=== PATIENT | female | born 1985 | race Caucasian/White ===

== ENCOUNTER 2018-10-16 22:30 | Emergency (ER) | payer OTHER ==
--- NOTE | 2018-10-17 00:48 | OBHP ---
Datetime: 10/17/2018 00:34 IP Adm Impression: Term, intrauterine ; No Active Labor; Intact Membranes IP Admit Plan: Discharge home Admit Comment, IP Provider: 32 yo female with an IUP at 38.1 weeks and presents with c/o of Leaking fluid since earlier tonite without any onset ot contractions or any cramping, Admits to adeq uate FM and no gush of fluid. States that there has been no problems with this . Denied any urinary or bowel c/o's. PMHx Negative PSHx: C/S x 1 Meds PNV NKDA Social Hx Negative x 3 PE: as noted above A/P IUP at 38.1 weeks No fluid in vaginal per SSE exam. Nitrazine negative but pt was clearly peeing in front of my eyes and across the bed. NST Reactive. No contractions recorded or palpated Pt reassured and discharged home with labor precautions and verbalized understanding Dr. Wilson notified and agreed with POC. Pelvic Type - PN: Adequate Extremities - PN: Normal Abdomen - PN: Normal Back - PN: Normal Breast - PN: Not Done Lungs - PN: Normal Heart - PN: Normal Thyroid - PN: Normal Neurologic - PN: Normal HEENT - PN: Normal General - PN: Normal Presentation-Admit: Vertex FHR - Baseline A Provider: 130 Membranes, Provider: Intact Contraction Comments Provider: None Gestation - Est Wks by US: 38.1 Pool Provider: Negative Nitrazine Provider: Negative EGA AdmitDate IP: 38.1 Vital Signs Provider: Reviewed IP Chief Complaint: Suspected ruptured membranes NICHD Variability Prov Fetus A: Moderate 6-25bpm NICHD Accel Fetus A IP Provider: [id number] FHR Category Provider Fetus A: Category I NICHD Decel Fetus A IP Provider: None Dilatation, Provider: 0 Effacement, Provider: 0 Station, Provider: -3 Genitourinary Exam: Normal DTRs - PN: Normal
[2018-10-17 05:06] VITALS: BP 116/83; PULSE 91; RESP 20; TEMP 99; O2SAT 99
== END 2018-10-17 00:50 | disposition home or self-care (01) ==
LOC: C.EROB 22:30
DX: O26.893 Other specified pregnancy related conditions, third trimester (principal); Z3A.38 38 weeks gestation of pregnancy

== ENCOUNTER 2018-10-22 05:38 | Inpatient (IN) | payer OTHER ==
[2018-10-22 06:15] VITALS: BMI 32.5
[2018-10-22] MEDS ORDERED: Lactated Ringer's 1,000 ML IV ONE ×2 (06:26→10:00)
[2018-10-22 06:40] LABS: BASO # 0.1 K/uL (0.0-0.2); BASO % 0.7 % (0.0-2.0); EOS # 0.1 K/uL (0.0-0.7); EOS % 1.2 % (0.0-4.0); HEMOGLOBIN 11.7 g/dL (11.0-16.0); LYMPH # 2.5 K/uL (1.0-4.3); LYMPH % 24.4 % (20.0-40.0); MEAN CELL VOLUME 83.7 fL (81.0-99.0); MEAN CORPUSCULAR HEMOGLOBIN 27.4 pg (27.0-31.0); MEAN CORPUSCULAR HGB CONC 32.8 g/dL (33.0-37.0); MONO # 0.6 K/uL (0.0-0.8); MONO % 6.1 % (0.0-10.0); NEUT # 6.9 K/uL (1.8-7.0); NEUT % 67.6 % (50.0-75.0); NRBC % 0.1 % (0.0-2.0); RBC 4.25 Mil/uL (3.80-5.20); RED CELL DISTRIBUTION WIDTH 16.5 % (11.5-14.5); WHITE BLOOD COUNT 10.1 K/uL (4.8-10.8)
[2018-10-22 06:51] LABS: SQUAMOUS EPITHIAL 7 /hpf (0-5); URINE BACTERIA OCC (<OCC)
[2018-10-22 06:55] LABS: URINE BILIRUBIN NEGATIVE (NEGATIVE); URINE CLARITY Clear (Clear); URINE COLOR YELLOW (YELLOW); URINE GLUCOSE (UA) NEGATIVE (Normal)
[2018-10-22 06:56] LABS: PH,URINE 5.5 (5.0-8.0); URINE BLOOD NEGATIVE (NEGATIVE); URINE LEUKOCYTE ESTERASE NEGATIVE Leu/uL (Negative); URINE PROTEIN NEGATIVE (NEGATIVE); URINE UROBILINOGEN 0.2 mg/dL (0.2-1.0)
[2018-10-22 07:00] LABS: ALB/GLOB RATIO 1.1 (1.0-2.1); ALBUMIN 3.6 g/dL (3.5-5.0); ALT/SGPT 15 U/L (9-52); AST/SGOT 17 U/L (14-36); BLOOD UREA NITROGEN 10 mg/dL (7-17); GFR NON-AFRICAN AMERICAN > 60
[2018-10-22] MEDS ORDERED: Oxytocin 10 Units/ml Inj ONE (07:29)
[2018-10-22] MEDS ORDERED: Morphine 1 mg/ml preservative-free Inj(Duramorph) ONE (07:32)
[2018-10-22] MEDS ORDERED: Sodium Citrate/Citric Acid 15 ml Sol PO ONE (08:00)
[2018-10-22] MEDS ORDERED: cefOXitin IV 2 gm in Dextrose 2 GM/50 ML BAG IVPB ONE (08:00)
--- NOTE | 2018-10-22 09:33 | OBADHP ---
Datetime: 10/22/2018 06:31 IP Adm Impression Other: abdominal pain Admit Comment, IP Provider: Patient is a 32 year old at 38w6d with DENNY of 10/30/2018 by LMP wh o presents with abdominal pain. States that the pain started last night and occurs every 10 minutes. She endorses +FM, denies LOF and VB. Issues: Denies OB Hx: 1. IAB 2. 2011 PLTCD 2/2 NRFHT Female , no complications 3. Current [employer] Hx: LMP 01/23/18 [facility] 14 x regular x 3 days Denies history of fibroids, ovarian cysts Allergies: NKDA Medications: PNV, Iron Medical History: Denies Surgical History: C/S x 1 Social History: Denies alcohol, tobacco, drug use Family History: Denies PE: See above A/P: Patient is a 32 year old at 38w6d, previous C/S in early labor -Admit to unit -Diet: NPO -CEFM and TOCO -Admission labs: CBC, CMP, UA, TS -Cefoxitin, Pepcid, Bictra preoperatively -Anesthesia notified -Plan discussed with Dr Katie Davies DO PGY-2 FHR - Baseline A Provider: 135 Contraction Comments Provider: irregular Comments, ACOG Physical Exam: VSS Gen: AAOx3 Abd: Soft, gravid Ext: No clubbing, cyanosis, edema SVE: /-2 IP Hx Assessment: The History has been Reviewed and is Current Vital Signs Provider: Reviewed; Within Normal Limits IP Chief Complaint: Uterine contractions NICHD Variability Prov Fetus A: Moderate 6-25bpm FHR Category Provider Fetus A: Category I NICHD Decel Fetus A IP Provider: None Dilatation, Provider: 2 Effacement, Provider: 70 Station, Provider: -2 EGA AdmitDate IP: 38.6 IP Adm Impression: Term, intrauterine IP Admit Plan: Admit to unit Datetime: 10/17/2018 00:34 Pelvic Type - PN: Adequate Extremities - PN: Normal Abdomen - PN: Normal Back - PN: Normal Breast - PN: Not Done Lungs - PN: Normal Heart - PN: Normal Thyroid - PN: Normal Neurologic - PN: Normal HEENT - PN: Normal General - PN: Normal Presentation-Admit: Vertex Membranes, Provider: Intact Gestation - Est Wks by US: 38.1 Pool Provider: Negative Nitrazine Provider: Negative NICHD Accel Fetus A IP Provider: 15X15 Genitourinary Exam: Normal DTRs - PN: Normal
--- NOTE | 2018-10-22 10:41 | PCM.SURG1 ---
Surgeon's Initial Post Op Note - Surgeon's Notes Surgeon: dr iqbal Die Cast Technician: dr olivarez Type of Anesthesia: Spinal Anesthesia Administered By: dr valdivia Pre-Operative Diagnosis: 32c yr at 38+we with pain/previous c/s Operative Findings: see the op Post-Operative Diagnosis: repeat c/s Operation Performed: repeat sectioion Specimen/Specimens Removed: placente. cord blood Estimated Blood Loss: EBL {In ML}: 700 Blood Products Given: N/A Drains Used: No Drains Post-Op Condition: Good Date of Surgery/Procedure: 10/22/18 Time of Surgery/Procedure: 10:00
[2018-10-22] MEDS ORDERED: Oxycodone/Acetaminophen 5/325 mg Tab PO PRN (14:52)
[2018-10-22] MEDS: Simethicone 80 mg Chewtab PO SCH ×2 (17:05→22:14)
[2018-10-22] MEDS ORDERED: Tdap Vaccine 0.5 ml Vial (10-64 yrs) IM ONE (17:38)
[2018-10-23] MEDS: Oxycodone/Acetaminophen 5/325 mg Tab PO PRN ×2 (00:32→19:37)
--- NOTE | 2018-10-23 02:57 | OP ---
PROCEDURE DATE: 10/22/2018 PREOPERATIVE DIAGNOSES: A 32-year-old 2, para 1, has previous section, abdominal pain. POSTOPERATIVE DIAGNOSES: A 32-year-old 2, para 1, has previous section, abdominal pain. SURGEON: Tai Wilson MD PRINT INSPECTOR SURGEON: Mani Jolley MD, who was present throughout the surgery. ANESTHESIA: Spinal. ANESTHESIOLOGIST: Dr. Morejon. PROCEDURE PERFORMED: Repeat section. COMPLICATION: None. ESTIMATED BLOOD LOSS: 700 mL. DESCRIPTION OF PROCEDURE: After informed consent was obtained, the patient was brought to the operating room and placed supine on the table, where spinal anesthesia was given. Once the anesthesia was given, the patient was prepped and draped in normal sterile fashion. At the site of the previous skin incision, an incision was made with a knife, the subcutaneous cut with a Bovie, and the fascia was excised on both sides using curved Alejandro scissors. The fascia was from the site of the umbilicus and then at the site of the rectus muscle. Rectus muscle was , the peritoneum was lifted up with two Allis scissors and it was cut with Metzenbaum scissors. Bladder blade was placed. Bladder flap was created. Lower uterine segment incision was made with a knife. It was extended on both sides using Bovie and curved Alejandro scissors. Baby was delivered in ELANA position. Cord was clamped and cut. Baby was handed to the awaiting cartography technician. After that, cord gas was taken. Placenta was taken and sent to Pathology. The uterus was exteriorized and cleared of all clots and debris. Uterine incision was closed using #1 Vicryl in running interlocking fashion. Second layer was closed with the same stitch. After that cul-de-sac was cleared of all the clots and debris. Uterus, tubes, and ovaries were normal. Then the uterus was returned back to the abdominal cavity. Gutters were cleared of clots and debris. Peritoneum was closed using 2-0 Vicryl in running interlocking fashion. Muscle was closed using 2-0 Vicryl in running interlocking fashion. The fascia was then closed using #1 Vicryl in running interlocking fashion. Skin was closed using 3-0 Monocryl on straight needle. The patient tolerated the procedure well. Lap, sponge, and instrument counts were correct x2. Tai Wilson MD
--- NOTE | 2018-10-23 06:10 | OBPPN ---
Datetime: 10/23/2018 06:06 PP Pain Prov: Within normal limits PP Nausea Prov: Denies PP Flatus Prov: No PP Abdomen/Uterus Prov: Normal PP Lochia Prov: Normal PP Extremities Prov: Normal PP C/S Incision Prov: Normal PP Comments Phys Exam Prov: incision clean and dry PP Impression Prov: Normal progression PP Plan Prov: Continue present management PP Progress Note Prov: pt was seen at bed side, pain under control,no n/v, toleralting liquid deit, egan inn, no flatus pod#1 s/p c/s cbc advance det cont poast op care cont pain managemenet encourage ambulatioj Vital Signs Provider PP: Reviewed; Within Normal Limits
[2018-10-23 08:18] LABS: HEMOGLOBIN 11.1 g/dL (11.0-16.0); MEAN CELL VOLUME 83.8 fL (81.0-99.0); MEAN CORPUSCULAR HEMOGLOBIN 27.8 pg (27.0-31.0); MEAN CORPUSCULAR HGB CONC 33.2 g/dL (33.0-37.0); MEAN PLATELET VOLUME 9.5 fL (7.2-11.7); RBC 3.98 Mil/uL (3.80-5.20); RED CELL DISTRIBUTION WIDTH 16.6 % (11.5-14.5); WHITE BLOOD COUNT 10.7 K/uL (4.8-10.8)
[2018-10-23] MEDS: Prenatal Multivit/Folic Acid/Iron Tab PO SCH (10:19)
[2018-10-23] MEDS: Simethicone 80 mg Chewtab PO SCH ×4 (10:19→21:35)
[2018-10-24] MEDS: Oxycodone/Acetaminophen 5/325 mg Tab PO PRN ×2 (02:30→20:39)
[2018-10-24 09:22] VITALS: O2SAT 98
[2018-10-24] MEDS: Simethicone 80 mg Chewtab PO SCH ×4 (09:48→22:19)
[2018-10-24] MEDS: Prenatal Multivit/Folic Acid/Iron Tab PO SCH (09:49)
--- NOTE | 2018-10-24 10:33 | OBPPN ---
Datetime: 10/24/2018 10:31 PP Pain Prov: Within normal limits PP Nausea Prov: Present PP Flatus Prov: Yes PP Abdomen/Uterus Prov: Normal PP Lochia Prov: Normal PP Extremities Prov: Normal PP C/S Incision Prov: Normal PP Impression Prov: Normal progression PP Plan Prov: Continue present management PP Progress Note Prov: pt was seen at bed side, pain under control,no n/v, tolerating deit, voiding, min lochia, flatus+ pod#2 s/p c/s cont pain marcelina cont post op care encourage ambulation Vital Signs Provider PP: Reviewed; Within Normal Limits
[2018-10-25 08:49] VITALS: PULSE 77; TEMP 98.3
[2018-10-25] MEDS: Prenatal Multivit/Folic Acid/Iron Tab PO SCH (09:10)
[2018-10-25] MEDS: Simethicone 80 mg Chewtab PO SCH (09:10)
[2018-10-25] MEDS ORDERED: Influenza Vaccine 60 mcg/0.5 mL SYR (4YR UP) IM ONE (10:17)
[2018-10-25 19:40] VITALS: BP 100/68; RESP 18
== END 2018-10-25 15:38 | disposition home or self-care (01) | DRG 788 ==
LOC: C.EROB 05:38 → C.4D 06:26 → C.4M 12:04
PROVIDERS: ADMIT Obstetrics & Gynecology; ATTEND Obstetrics & Gynecology
PROC: 10D00Z1 Extraction of Products of Conception, Low, Open Approach (ICD-10-PCS; principal; 2018-10-22)
DX: O34.211 Maternal care for low transverse scar from previous cesarean delivery (principal); Z37.0 Single live birth; Z3A.38 38 weeks gestation of pregnancy